=== PATIENT | male | born 1965 | race Caucasian/White ===

== ENCOUNTER 2022-12-23 08:59 | Day surgery (SDC) | payer MEDICAID ==
[~2022-12-23] VITALS: Ht 170.2 cm; Wt 90.7 kg
[2022-12-23] MEDS ORDERED: LIDOCAINE 2%, 20 ML MDV ONE (12:07)
[2022-12-23] MEDS ORDERED: NORMAL SALINE 10 ML VIAL ONE (12:07)
[2022-12-23] MEDS ORDERED: DIPHENHYDRAMINE INJ 50 MG/ML VIAL ONE (12:07)
[2022-12-23] MEDS ORDERED: methylPREDNISolone ACETATE 40 MG/ML ONE (12:07)
[2022-12-23] MEDS ORDERED: fentaNYL CITRATE/PF 100 MCG/2 ML AMP ONE (12:07)
[2022-12-23] MEDS ORDERED: IOPAMIDOL 50 ML VIAL IV ONE (12:07)
[2022-12-23] MEDS: MIDAZOLAM HCL 5 MG/5 ML VIAL ONE ×2 (13:05→13:18)
[2022-12-23 16:03] VITALS: BP_SYST 143
== END 2022-12-23 15:20 | disposition home or self-care (01) ==
LOC: SDS 08:59
PROVIDERS: ATTEND Internal Medicine
DX: M51.16 Intervertebral disc disorders with radiculopathy, lumbar region (principal); F41.9 Anxiety disorder, unspecified; F32.A Depression, unspecified; Z79.899 Other long term (current) drug therapy; Z20.822 Contact with and (suspected) exposure to COVID-19
CPT/HCPCS: 62323; 87426; 36415; J1200; J2001; J1030; J2250; J3010; Q9967; 76000

== ENCOUNTER 2024-03-22 11:32 | Day surgery (SDC) | payer MEDICAID ==
[~2024-03-22] VITALS: Ht 167.6 cm; Wt 86.4 kg
[~2024-03-22 11:32] MED LIST: LIDOCAINE 2%, 20 ML MDV ONE
[2024-03-22] MEDS ORDERED: LIDOCAINE 2%, 20 ML MDV ONE (12:00)
[2024-03-22] MEDS ORDERED: fentaNYL CITRATE/PF 100 MCG/2 ML AMP ONE (13:39)
[2024-03-22] MEDS ORDERED: MIDAZOLAM HCL 5 MG/5 ML VIAL ONE (14:06)
[2024-03-22 14:16] VITALS: O2SAT 98
[2024-03-22] MEDS: fentaNYL CITRATE/PF 100 MCG/2 ML AMP IVP ONE (14:19)
[2024-03-22 16:10] VITALS: BP_SYST 134; PULSE 80; RESP 16
== END 2024-03-22 16:08 | disposition home or self-care (01) ==
LOC: SDS 11:32 → SMU 11:35 → SDS 16:08
PROVIDERS: ATTEND Internal Medicine
DX: M51.16 Intervertebral disc disorders with radiculopathy, lumbar region (principal); F41.9 Anxiety disorder, unspecified; F32.A Depression, unspecified; Z98.890 Other specified postprocedural states
CPT/HCPCS: 62323; J2250; J3010; Q9967; J1010; 76000; J1030; J2001